=== PATIENT | male | born 1960 | race Caucasian/White ===

== ENCOUNTER → 2022-01-27 | Outpatient (CLI) | payer BC ==
[~2022-01-27] MED LIST: ALLO300 PO; ASPI81EC PO; CLON.1 PO; CLON.3TP TP; DIOVAN PO; FURO40 PO; METF500 PO; NIFE90ER PO; POTCHL20ER PO; VITAMIN B COMPLEX PO; VITAMIN C PO; VITAMIN D PO
== END | disposition home or self-care (01) ==
LOC: LAB SHORT 12:30 → LAB 12:30
DX: L08.9 Local infection of the skin and subcutaneous tissue, unspecified (principal)
CPT/HCPCS: 87070; 87205

== ENCOUNTER → 2022-11-26 | Outpatient (CLI) | payer BC ==
[2022-11-26 14:24] LABS: Stool Occult Blood Guaiac 1 Neg (Neg); Stool Occult Blood Guaiac 2 Neg (Neg)
[2022-11-26 14:25] LABS: Stool Occult Blood Guaiac 3 Neg (Neg)
== END | disposition home or self-care (01) ==
LOC: LAB 05:00 → LAB SHORT 05:00 → EDSTATUS 11-09 12:55 → LAB FUT 11-09 12:55
PROVIDERS: Internal Medicine
DX: D64.9 Anemia, unspecified (principal)
CPT/HCPCS: 82270

== ENCOUNTER 2024-11-01 07:04 | Day surgery (SDC) | payer BC, MEDICARE ==
[~2024-11-01] VITALS: Ht 177.8 cm; Wt 113.9 kg
[2024-11-01] MEDS ORDERED: NS 1,000 ML IV ONE ×2 (07:51→07:58)
[2024-11-01] MEDS ORDERED: Heparin Sodium 1000 Units/ML 10ML MDV ONE ×2 (07:51→07:58)
[2024-11-01 07:52] VITALS: BP 140/97
[2024-11-01] MEDS ORDERED: PRAV20 PO (07:56)
[2024-11-01] MEDS ORDERED: OLME20 PO (07:56)
[2024-11-01] MEDS ORDERED: Norco 5-325 Ta1 EACH PO (07:56)
[2024-11-01] MEDS ORDERED: Rena-Vite Tabl0.8 MG PO (07:57)
[2024-11-01] MEDS ORDERED: Nitroglycerin 2 MG/20 ML BTL ONE (07:58)
[2024-11-01] MEDS ORDERED: Renvela800 MG PO (07:58)
[2024-11-01] MEDS ORDERED: Verapamil HCL 2.5 MG/ML 2ML Injection ONE (07:58)
[2024-11-01] MEDS ORDERED: NS 0 ML IV ONE (07:58)
[2024-11-01 08:00] VITALS: BP 128/70
[2024-11-01] MEDS ORDERED: Midazolam HCl 1MG / ML 2ML Vial ONE ×2 (11:32→11:49)
[2024-11-01] MEDS ORDERED: FentaNYL Citrate 50 MCG/ML 2 ML Injection ONE ×2 (11:32→11:49)
[2024-11-01 12:53] VITALS: BP 143/82
[2024-11-01 13:00] VITALS: BP 133/72
[2024-11-01 13:15] VITALS: BP 120/68
--- NOTE | 2024-11-01 13:39 | NUR ---
PT AND S/O VERBALIZES UNDERSTANDING WRITTEN AND VERBAL INSTRUCTIONS. DENIES QUESTIONS OR CONCERNS. PURSE STRINGS X 2 REMOVED FROM R FA AT FISTULA SITE. NO BLEEDING NOTED. CLOTH DOT APPLIED. PT IV DC'D. CATH INTACT. PRESSURE DSG APPLIED. PT DC TO HOME VIA S/O BY MELANI
== END 2024-11-01 14:21 | disposition home or self-care (01) ==
LOC: MHTC 07:04
DX: T82.898A Other specified complication of vascular prosthetic devices, implants and grafts, initial encounter (principal); I12.0 Hypertensive chronic kidney disease with stage 5 chronic kidney disease or end stage renal disease; E11.22 Type 2 diabetes mellitus with diabetic chronic kidney disease; N18.6 End stage renal disease; D63.1 Anemia in chronic kidney disease; E78.5 Hyperlipidemia, unspecified; G47.33 Obstructive sleep apnea (adult) (pediatric); K21.9 Gastro-esophageal reflux disease without esophagitis; Z79.82 Long term (current) use of aspirin; Z88.8 Allergy status to other drugs, medicaments and biological substances
CPT/HCPCS: 36901; 36902; 37241; 76937; 99152; 99153; C1725; C1769; C1887; C1894; J1644; J2250; J3010; J7030; J7050; Q9967